=== PATIENT | male | born 1975 | race Caucasian/White ===

== ENCOUNTER 2019-03-07 09:03 | Emergency (ER) | payer OTHER ==
--- NOTE | 2019-03-07 09:56 | ED Physician Chart ---
ED Chief Complaint/HPI - Patient Information Date Seen:: 03/07/19 Time Seen:: 09:05 Chief Complaint:: L hand injury. History of Present Illness:: Pt came in by private auto because he sustained laceration in his L hand when a piece of glass he was carrying with his bare hands slipped. There was no broken glass or other sharp object involved. Last tetanus immunization is unknown. Allergies:: Allergies Allergy/AdvReac Type Severity Reaction Status Date / Time No Known Allergies Allergy Verified 03/07/19 09:25 Vitals:: Vital Signs - 8 hr 03/07/19 09:25 Temp 98.7 F HR 61 RR 19 BP 164/74 O2 Sat % 98 Historian:: Patient Family MD/PCP:: unknown LMP:: N/A Review:: Nurse's Note Reviewed ED Review of Systems - Review of Systems General/Constitutional: No fever, No chills, No weight loss, No weakness, No edema, No loss of appetite Skin: No rash, No bruising Head: No headache Eyes: No pain, No diplopia ENT: No earache, No nasal drainage, No sore throat Neck: No neck pain, No swelling, No stiffness, No mass noted Cardio Vascular: No palpitations, No edema Pulmonary: No SOB, No cough, No wheezing GI: No nausea, No vomiting, No diarrhea, No pain G/U: No dysuria, No hematuria Musculoskeletal: Other (L hand pain) Psychiatric: No prior psych history, No depression Hematopoietic: No bruising, No lymphadenopathy Allergic/Immuno: No urticaria, No angioedema Neurological: No syncope, No focal symptoms, No weakness, No paresthesia, No headache, No seizure, No dizziness, No confusion ED Past Medical History - Past Medical History Past Medical History: No significant medical hx Family History: Diabetes Melitus (in mother) Social History: Non Smoker, Alcohol (occasional use. 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 Surgical History: None Psychiatricy History: None Medication: None Family Medical History - Family Member Father History Unknown: Yes Living Status: Still Living ED Physical Exam - Physical Examination General/Constitutional: Awake, Well-developed, well-nourished (male), Alert, No distress, GCS 15, Non-toxic appearing, Ambulatory Other Gen/Cons comments:: Breathes comfortably, speaks clearly, and interacts appropriately. Pt ambulates without difficulty. Head: Atraumatic Eyes: Lids, conjuctiva normal, PERRL, EOMI Skin: Nl inspection, Well hydrated, No lymphadenopathy ENMT: External ears, nose nl, Nasal exam nl, Oropharynx nl Neck: Full ROM w/o pain, No nuchal rigidity, No mass, No stridor Respiratory: Nl effort/Exclusion, Clear to Auscultation, No Wheeze/Rhonchi/Rales Cardio Vascular: RRR, No murmur, gallop, rubs GI: No tenderness/rebounding/guarding, No organomegaly, Normal BS's, Nondistended, No mass/bruits Other Extremities comments:: L hand: There is an approx. 7 cm superficial laceration at proximal aspect of thenar eminence. No active bleeding, erythema, swelling, or exudate. FROM of all joints. No detectable motor/sensory/vascular deficit. Pt can approximate left thumb with the other 4 fingers without difficulty. Pt can make a tight fist with his left hand. Neuro/Psych: Alert/oriented (oriented x 3), Mood normal, Normal gait, No focal deficits ED Labs/Radiology/EKG Results - Radiology Results Results: L hand X-ray: Based on my interpretation, mild soft tissue swelling. No acute fracture or subluxation. Official report is pending. ED Septic Shock - . Is Septic Shock (SBP<90, OR Lactate>4 mmol\L) present?: No - <6hrs of presentation: Vital Signs: Vital Signs - 8 hr 03/07/19 09:25 Temp 98.7 F HR 61 RR 19 BP 164/74 O2 Sat % 98 ED Reassessment (Disposition) - Reassessment Reassessment:: 1150 Laceration repair: L hand thenar eminence area (wound length is approx. 7 cm): Pt was prepped and draped in usual sterile manner. Wound was well cleansed with Betadine. 1% xylocaine without epinephrine was used to accomplish local anesthesia. Wound was well irrigated with sterile normal saline. Wound was explored. No foreign body was found. Wound was well approximated with 12 4- 0 nylon sutures. Pt tolerated the procedure well with immediate complication. Reexamined pt after laceration repair. No neurovascular deficit. Pt was able to make tight fist and to approximate his left thumb with other 4 fingers without difficulty. 1205 Pt remains well. Pt requests to go home now. Aftercare instructions have been given. The Doctor's First Report of Occupational Injury or Illness has been completed and filed for pt. Reassessment Condition:: Improved - Diagnosis Diagnosis:: Laceration at L hand thenar eminence region, s/p surgical repair. Stable. - Aftercare/Follow up Instructions Aftercare/Follow-Up Instructions:: Refer to Discharge Instructions Notes:: Keep left hand clean and dry. Wound care instructions have been given. May take Tylenol 500 mg tab one tab po q6h prn pain. F/U at [facility] in one and three days for wound check. Sutures out in 7 to 10 days. Return to ER immediately if condition worsens or if any further questions/problems. Medication Prescribed:: Bactrim DS one tab po q12h for 7 days. D-14 R-0 - Patient Disposition Discharge/Transfer:: Home Time:: 12:20 Condition at Disposition:: Stable, Improved
--- NOTE | 2019-03-07 11:29 | Diagnostic Imaging Report ---
Left hand (3 views) HISTORY: Pain, trauma No acute bony abnormalities. No fractures. No other significant abnormalities. IMPRESSION: No acute abnormalities. In the presence of recent trauma and persistent symptoms, a repeat radiograph in 5-7 days may be helpful for detection of a subtle or occult fracture.
[2019-03-07] MEDS ORDERED: Triple Antibiotic 0.94 gm Pkt TP STA (12:03)
[2019-03-07] MEDS ORDERED: Triple Antibiotic 0.94 gm Pkt TP ONE (12:12)
== END 2019-03-07 12:33 | disposition home or self-care (01) ==
LOC: ER 09:03
DX: S61.412A Laceration without foreign body of left hand, initial encounter (principal); W25.XXXA Contact with sharp glass, initial encounter; Y93.89 Activity, other specified; Y92.89 Other specified places as the place of occurrence of the external cause; Y99.8 Other external cause status
CPT/HCPCS: 12002; 73130-TC-LT; J2001; Z7502; Z7610